=== PATIENT | female | born 1955 | race Caucasian/White ===

== ENCOUNTER 2020-12-08 17:28 | Emergency (ER) | payer BC | END 2020-12-08 18:40 | disposition home or self-care (01) | LOC: NAV ERS 17:28 | DX: H53.8 Other visual disturbances (principal); E03.9 Hypothyroidism, unspecified; E78.5 Hyperlipidemia, unspecified; E78.00 Pure hypercholesterolemia, unspecified; I10 Essential (primary) hypertension; Z79.899 Other long term (current) drug therapy; Z79.82 Long term (current) use of aspirin | CPT/HCPCS: 36416; 99283 ==